=== PATIENT | female | born 1990 ===

== ENCOUNTER 2020-06-27 23:58 | Emergency (ER) | payer OTHER ==
[2020-06-28] MEDS ORDERED: Sodium Chloride 0.9% 10 ML Syringe FLUSH PRN (01:00)
[2020-06-28] MEDS ORDERED: Sodium Chloride 0.9% 2.5 ML Syringe FLUSH PRN (01:00)
[2020-06-28] MEDS ORDERED: Lactated Ringers 1,000 ML IV ONE (01:01)
[2020-06-28] MEDS ORDERED: Metoclopramide 10 MG/2 ML SDV IVPUSH ONE ×2 (01:01→01:41)
--- NOTE | 2020-06-28 01:04 | EDM.PDOC ---
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 Cuello through [facility] who is presenting with nausea vomiting. Patient reports that she has had trouble with nausea and vomiting for the last 2 weeks. She did talk to her OBs and she has an appointment with them the day after tomorrow. They had recommended B6 and Unisom but she had wanted to try things naturally and so has not taken anything. No abdominal pain no vaginal bleeding no diarrhea no back pain or flank pain no dysuria or hematuria patient reports intolerance to solids and liquids all day today. No alleviating factors radiation or other associated symptoms. epigastric Pain Score (Numeric/FACES): 7 - Related Data Allergies Allergy/AdvReac Type Severity Reaction Status Date / Time No Known Allergies Allergy Verified 06/28/20 01:00 Home Meds: Home Meds Pnv No.95/Ferrous Fum/Folic AC [ Caplet] 1 tab PO DAILY 06/28/20 [History] ED ROS GENERAL - Review of Systems Review Of Systems: See Below Free Text/Narrative/Comment: General: No fever. Skin: No rash. Eyes: No vision problems. ENT: No sore throat. Neck: No neck stiffness. Respiratory: No shortness of breath. Cardiac: No chest pain. Gastrointestinal: Per HPI Urinary: No dysuria. Musculoskeletal: No myalgias/arthralgias. Neurologic: No headache. ED EXAM, GENERAL - Physical Exam Exam: See Below Free Text/Narrative:: General Appearance: No acute distress, appears comfortable Skin: No rash HEENT: Normocephalic/atraumatic, sclera anicteric, mucous membranes dry Neck: Normal range of motion Chest and Lungs: Bilateral breath sounds, clear to auscultation Cardiovascular: Regular rate and rhythm, no murmur Abdomen: Soft, non-tender Back: Normal Musculoskeletal: No edema or tenderness Neurologic: Awake, alert, no obvious deficits, moving all extremities Psychiatric: Appropriate, cooperative Course - Vital Signs Last Recorded V/S: Last Vital Signs Temp 97.4 F 06/28/20 00:53 Pulse 80 06/28/20 03:15 Resp 16 06/28/20 03:15 BP 111/62 06/28/20 03:15 Pulse Ox 98 06/28/20 03:15 - Orders/Labs/Meds Orders: Active Orders 24 hr Category Date Time Status Dextrose 5%-0.9% NaCl [Dextrose 5%-Normal Saline] 1,000 Med 06/28/20 03:45 Active ml IV ASDIRECTED Sodium Chloride 0.9% [Saline Flush] Med 06/28/20 01:00 Active 10 ml FLUSH ASDIRECTED PRN Sodium Chloride 0.9% [Saline Flush] Med 06/28/20 01:00 Active 2.5 ml FLUSH ASDIRECTED PRN Saline Lock Insert [OM.PC] Stat Oth 06/28/20 01:00 Ordered Medication Orders Dextrose/Sodium Chloride (Dextrose 5%-Normal Saline) 1,000 mls @ 999 mls/hr IV ASDIRECTED LUCIAN Last Admin: 06/28/20 03:45 Dose: 999 mls/hr Documented by: OBI Sodium Chloride (Saline Flush) 10 ml FLUSH ASDIRECTED PRN PRN Reason: Keep Vein Open Last Admin: 06/28/20 01:12 Dose: 10 ml Documented by: XAVIERG Sodium Chloride (Saline Flush) 2.5 ml FLUSH ASDIRECTED PRN PRN Reason: Keep Vein Open Last Admin: 06/28/20 01:12 Dose: 2.5 ml Documented by: OBI Labs: Laboratory Tests 06/28/20 06/28/20 06/28/20 Range/Units 01:03 01:03 01:52 WBC 12.51 H (4.0-11.0) K/uL RBC 4.05 L (4.30-5.90) M/uL Hgb 12.6 (12.0-16.0) g/dL Hct 36.0 (36.0-46.0) % MCV 88.9 (80.0-98.0) fL MCH 31.1 (27.0-32.0) pg MCHC 35.0 (31.0-37.0) g/dL RDW Std Deviation 37.6 (28.0-62.0) fl RDW Coeff of Prince 12 (11.0-15.0) % Plt Count 354 (150-400) K/uL MPV 10.30 (7.40-12.00) fL Neut % (Auto) 74.6 (48.0-80.0) % Lymph % (Auto) 18.5 (16.0-40.0) % [place] % (Auto) 6.6 (0.0-15.0) % Eos % (Auto) 0.2 (0.0-7.0) % Baso % (Auto) 0.1 (0.0-1.5) % Neut # (Auto) 9.3 H (1.4-5.7) K/uL Lymph # (Auto) 2.3 (0.6-2.4) K/uL [place] # (Auto) 0.8 (0.0-0.8) K/uL Eos # (Auto) 0.0 (0.0-0.7) K/uL Baso # (Auto) 0.0 (0.0-0.1) K/uL Sodium 135 L (136-145) mmol/L Potassium 3.5 (3.5-5.1) mmol/L Chloride 99 (98-107) mmol/L Carbon Dioxide 23.2 (21.0-32.0) mmol/L BUN 9 (7.0-18.0) mg/dL Creatinine 0.6 (0.6-1.0) mg/dL Est Cr Clr Drug Dosing 115.47 mL/min Estimated GFR (MDRD) > 60.0 ml/min Glucose 103 (74-106) mg/dL Calcium 9.8 (8.5-10.1) mg/dL Total Bilirubin 0.4 (0.2-1.0) mg/dL AST 15 (15-37) IU/L ALT 25 (14-63) IU/L Alkaline Phosphatase 59 (46-116) U/L Total Protein 8.7 H (6.4-8.2) g/dL Albumin 4.2 (3.4-5.0) g/dL Globulin 4.5 H (2.6-4.0) g/dL Albumin/Globulin Ratio 0.9 (0.9-1.6) Urine Color YELLOW Urine Appearance SLT CLOUDY Urine pH 6.0 (5.0-8.0) Ur Specific [place] >= 1.030 (1.001-1.035) Urine Protein NEGATIVE (NEGATIVE) mg/dL Urine Glucose (UA) NEGATIVE (NEGATIVE) mg/dL Urine Ketones >=80 (NEGATIVE) mg/dL Urine Occult Blood NEGATIVE (NEGATIVE) Urine Nitrite NEGATIVE (NEGATIVE) Urine Bilirubin SMALL H (NEGATIVE) Urine Ictotest NEGATIVE Urine Urobilinogen 0.2 (<2.0) EU/dL Ur Leukocyte Esterase NEGATIVE (NEGATIVE) Urine RBC 0-1 (0-2/HPF) Urine WBC 0-2 (0-5/HPF) Ur Epithelial Cells MODERATE (NONE-FEW) Urine Bacteria RARE (NEGATIVE) Urine Mucus HEAVY (NONE-MOD) Meds: Medications Generic Name Dose Route Start Last Admin Trade Name Freq PRN Reason Stop Dose Admin Dextrose/Sodium Chloride 1,000 mls @ 999 mls/hr 06/28/20 03:45 06/28/20 03:45 Dextrose 5%-Normal Saline IV 999 mls/hr ASDIRECTED LUCIAN Administration Sodium Chloride 10 ml 06/28/20 01:00 06/28/20 01:12 Saline Flush FLUSH 10 ml ASDIRECTED PRN Administration Keep Vein Open Sodium Chloride 2.5 ml 06/28/20 01:00 06/28/20 01:12 Saline Flush FLUSH 2.5 ml ASDIRECTED PRN Administration Keep Vein Open Discontinued Medications Generic Name Dose Route Start Last Admin Trade Name Manuela PRN Reason Stop Dose Admin Lactated Ringer's 1,000 mls @ 999 mls/hr 06/28/20 01:01 06/28/20 01:09 Ringers, Lactated IV 06/28/20 02:01 999 mls/hr .BOLUS ONE Administration Sodium Chloride 154 meq/ 1,038.5 mls @ 999 mls/hr 06/28/20 02:45 Dextrose/Water IV ASDIRECTED LUCIAN Metoclopramide HCl 5 mg 06/28/20 01:01 06/28/20 01:11 Reglan IVPUSH 06/28/20 01:02 5 mg ONETIME ONE Administration Metoclopramide HCl 5 mg 06/28/20 01:41 06/28/20 01:47 Reglan IVPUSH 06/28/20 01:42 5 mg ONETIME ONE Administration Pyridoxine HCl 25 mg 06/28/20 02:00 06/28/20 02:11 Vitamin B6-Pyridoxine PO 06/28/20 02:01 25 mg ONETIME ONE Administration Departure - Departure Time of Disposition: 04:35 Disposition: Home, Self-Care 01 Condition: Good Clinical Impression: Hyperemesis gravidarum - Discharge Information *PRESCRIPTION DRUG MONITORING PROGRAM REVIEWED*: Not Applicable *COPY OF PRESCRIPTION DRUG MONITORING REPORT IN PATIENT JAH: Not Applicable Instructions: Morning Sickness, [id number] Forms: ED Department Discharge Additional Instructions: I encourage you to take the B vitamins and Unisom for your nausea as instructed by your OB. Please be sure to follow-up with them as scheduled on Monday. If your symptoms again become severe and you are unable to tolerate solids or liquids please call your OBs office or return to the emergency department. The following information is given to patients seen in the emergency department who are being discharged to home. This information is to outline your options for follow-up care. We provide all patients seen in our emergency department with a follow-up referral. The need for follow-up, as well as the timing and circumstances, are variable depending upon the specifics of your emergency department visit. If you don't have a primary care physician on staff, we will provide you with a referral. We always advise you to contact your personal physician following an emergency department visit to inform them of the circumstance of the visit and for follow-up with them and/or the need for any referrals to a consulting specialist. The emergency department will also refer you to a specialist when appropriate. This referral assures that you have the opportunity for follow-up care with a specialist. All of these measure are taken in an effort to provide you with optimal care, which includes your follow-up. Under all circumstances we always encourage you to contact your private physician who remains a resource for coordinating your care. When calling for follow-up care, please make the office aware that this follow-up is from your recent emergency room visit. If for any reason you are refused follow-up, please contact the [facility] Emergency Department at and asked to speak to the emergency department charge nurse. Sepsis Event Note (ED) - Evaluation Sepsis Screening Result: No Definite Risk - Focused Exam Vital Signs: Vital Signs Temp Pulse Resp BP Pulse Ox 06/28/20 03:15 80 16 111/62 98 06/28/20 02:15 82 17 108/65 99 06/28/20 00:53 97.4 F 92 18 131/89 100 - My Orders Last 24 Hours: My Active Orders 06/28/20 01:00 Sodium Chloride 0.9% [Saline Flush] 10 ml FLUSH ASDIRECTED PRN Sodium Chloride 0.9% [Saline Flush] 2.5 ml FLUSH ASDIRECTED PRN Saline Lock Insert [OM.PC] Stat 06/28/20 03:45 Dextrose 5%-0.9% NaCl [Dextrose 5%-Normal Saline] 1,000 ml IV ASDIRECTED - Assessment/Plan Last 24 Hours: My Active Orders 06/28/20 01:00 Sodium Chloride 0.9% [Saline Flush] 10 ml FLUSH ASDIRECTED PRN Sodium Chloride 0.9% [Saline Flush] 2.5 ml FLUSH ASDIRECTED PRN Saline Lock Insert [OM.PC] Stat 06/28/20 03:45 Dextrose 5%-0.9% NaCl [Dextrose 5%-Normal Saline] 1,000 ml IV ASDIRECTED Assessment:: 29-year-old female presenting with nausea and vomiting in early . No abdominal pain or tenderness no vaginal bleeding patient has already had a first trimester ultrasound no indication for ultrasound at this point. CBC CMP urinalysis to look for ketones or signs of UTI. Lactated Ringer's and Reglan ordered as well and will reassess. Pt's labs are good. Minimal hyponatremia, Ketones in the urine. Pt was given D5 NS with good sx improvement. Pt's sx have resolved and she tolerates PO well. Patient will f/u with her OB as scheduled tomorrow. Return precautions discussed and understood. Pt encouraged to take the unisom and Vitamin B as instructed by her OB.
[2020-06-28 01:35] LABS: BLOOD UREA NITROGEN,BUN 9 mg/dL (7.0-18.0); CARBON DIOXIDE,CO2 23.2 mmol/L (21.0-32.0); CHLORIDE,CL 99 mmol/L (98-107); GLUCOSE RANDOM 103 mg/dL (74-106); POTASSIUM,K 3.5 mmol/L (3.5-5.1); SODIUM,NA 135 mmol/L (136-145)
[2020-06-28] MEDS ORDERED: Vitamin B6-pyridOXINE 50 MG Tab PO ONE (02:00)
[2020-06-28] MEDS ORDERED: Sodium Chloride 23.4% 154 MEQ in Dextrose 10% in Water 1,000 ML IV SCH ×2 (02:45)
[2020-06-28] MEDS ORDERED: Dextrose 5%-0.9% NaCl 1,000 ML IV SCH (03:45)
== END 2020-06-28 04:50 | disposition home or self-care (01) ==
LOC: MW.ED 23:58
DX: O21.0 Mild hyperemesis gravidarum (principal); Z3A.08 8 weeks gestation of pregnancy
CPT/HCPCS: 36415; 80053; 81001; 85025; 96361; 96374; 96376; 99284; A9270; J2765; J7042; J7120; 99283

== ENCOUNTER 2020-07-20 12:07 | Emergency (ER) | payer OTHER ==
[2020-07-20] MEDS ORDERED: Ondansetron 4 MG/2 ML SDV IVPUSH ONE (12:10)
[2020-07-20] MEDS ORDERED: Sodium Chloride 0.9% 2.5 ML Syringe FLUSH PRN (12:10)
[2020-07-20] MEDS ORDERED: Sodium Chloride 0.9% 10 ML Syringe FLUSH PRN (12:10)
[2020-07-20] MEDS ORDERED: Sodium Chloride 0.9% 1,000 ML IV ONE (12:10)
--- NOTE | 2020-07-20 12:10 | EDM.PDOC ---
ED HPI GENERAL MEDICAL PROBLEM - General Stated Complaint: NAUSEA 12 WEEKS Time Seen by Provider: 07/20/20 12:08 Source of Information: Reports: Patient History Limitations: Reports: No Limitations - History of Present Illness INITIAL COMMENTS - FREE TEXT/NARRATIVE: 29-year-old female approximately 12 weeks presents for nausea and vomiting. Patient has been treated in the past for hyperemesis gravidarum. She notes that she has been taking Unisom, folic acid, vitamin B6 which has been helping a lot with her symptoms. Last night she developed retching, and inability to tolerate p.o. She has been able to take sips of water this morning without retching or vomiting, but still feels very nauseated and has a lack of appetite. She also notes interval development of a nonproductive cough, although she denies fevers or shortness of breath. 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 ED EXAM, GENERAL - Physical Exam Exam: See Below Exam Limited By: No Limitations General Appearance: Alert, WD/WN, No Apparent Distress Throat/Mouth: Normal Voice, No Airway Compromise Head: Atraumatic, Normocephalic Neck: Normal Inspection Respiratory/Chest: No Respiratory Distress, Lungs Clear, Normal Breath Sounds, No Accessory Muscle Use Cardiovascular: Normal Peripheral Pulses, Regular Rate, Rhythm GI/Abdominal: Soft, Non-Tender Extremities: Normal Inspection Neurological: Alert Psychiatric: Normal Affect, Normal Mood Skin Exam: Warm, Dry, Intact, Normal Color Course - Vital Signs Last Recorded V/S: Last Vital Signs Temp 98.4 F 07/20/20 12:19 Pulse 100 07/20/20 12:19 Resp 16 07/20/20 12:19 BP 115/66 07/20/20 12:19 Pulse Ox 97 07/20/20 12:19 - Orders/Labs/Meds Orders: Active Orders 24 hr Category Date Time Status Assess Heart Rate [ Heart Rate] [RC] Click Care 07/20/20 12:34 Active to Edit OB 1st Tri Sgl 1st Gest [US] Stat Exams 07/20/20 15:01 Taken CORONAVIRUS COVID-19 PCR PHL Stat Lab 07/20/20 12:59 Received Sodium Chloride 0.9% [Saline Flush] Med 07/20/20 12:10 Active 10 ml FLUSH ASDIRECTED PRN Sodium Chloride 0.9% [Saline Flush] Med 07/20/20 12:10 Active 2.5 ml FLUSH ASDIRECTED PRN Saline Lock Insert [OM.PC] Stat Oth 07/20/20 12:10 Ordered Medication Orders Sodium Chloride (Saline Flush) 2.5 ml FLUSH ASDIRECTED PRN PRN Reason: Keep Vein Open Sodium Chloride (Saline Flush) 10 ml FLUSH ASDIRECTED PRN PRN Reason: Keep Vein Open Labs: Laboratory Tests 07/20/20 07/20/20 07/20/20 Range/Units 12:55 12:55 12:55 WBC 10.38 (4.0-11.0) K/uL RBC 3.82 L (4.30-5.90) M/uL Hgb 11.6 L (12.0-16.0) g/dL Hct 34.1 L (36.0-46.0) % MCV 89.3 (80.0-98.0) fL MCH 30.4 (27.0-32.0) pg MCHC 34.0 (31.0-37.0) g/dL RDW Std Deviation 39.9 (28.0-62.0) fl RDW Coeff of Prince 12 (11.0-15.0) % Plt Count 332 (150-400) K/uL MPV 10.50 (7.40-12.00) fL Neut % (Auto) 69.2 (48.0-80.0) % Lymph % (Auto) 24.3 (16.0-40.0) % [place] % (Auto) 5.7 (0.0-15.0) % Eos % (Auto) 0.7 (0.0-7.0) % Baso % (Auto) 0.1 (0.0-1.5) % Neut # (Auto) 7.2 H (1.4-5.7) K/uL Lymph # (Auto) 2.5 H (0.6-2.4) K/uL [place] # (Auto) 0.6 (0.0-0.8) K/uL Eos # (Auto) 0.1 (0.0-0.7) K/uL Baso # (Auto) 0.0 (0.0-0.1) K/uL Nucleated RBC % 0.0 /100WBC Nucleated RBCs # 0 K/uL Lactate 0.9 (0.20-2.00) mmol/L Sodium 134 L (136-145) mmol/L Potassium 3.7 (3.5-5.1) mmol/L Chloride 100 (98-107) mmol/L Carbon Dioxide 21.3 (21.0-32.0) mmol/L BUN 6 L (7.0-18.0) mg/dL Creatinine 0.5 L (0.6-1.0) mg/dL Est Cr Clr Drug Dosing 138.57 mL/min Estimated GFR (MDRD) > 60.0 ml/min Glucose 81 (74-106) mg/dL Calcium 9.3 (8.5-10.1) mg/dL Magnesium 2.1 (1.8-2.4) mg/dL Total Bilirubin 0.2 (0.2-1.0) mg/dL AST 21 (15-37) IU/L ALT 30 (14-63) IU/L Alkaline Phosphatase 53 (46-116) U/L Total Protein 7.9 (6.4-8.2) g/dL Albumin 3.6 (3.4-5.0) g/dL Globulin 4.3 H (2.6-4.0) g/dL Albumin/Globulin Ratio 0.8 L (0.9-1.6) Lipase 82 (73-393) U/L HCG, Quant 906189.0 mIU/mL Urine Color Urine Appearance Urine pH (5.0-8.0) Ur Specific [place] (1.001-1.035) Urine Protein (NEGATIVE) mg/dL Urine Glucose (UA) (NEGATIVE) mg/dL Urine Ketones (NEGATIVE) mg/dL Urine Occult Blood (NEGATIVE) Urine Nitrite (NEGATIVE) Urine Bilirubin (NEGATIVE) Urine Urobilinogen (<2.0) EU/dL Ur Leukocyte Esterase (NEGATIVE) Urine RBC (0-2/HPF) Urine WBC (0-5/HPF) Ur Epithelial Cells (NONE-FEW) Urine Bacteria (NEGATIVE) Ketones (NEG) SARS CoV-2 RNA Rapid MARINA (NEGATIVE) 07/20/20 07/20/20 07/20/20 Range/Units 12:55 12:59 14:28 WBC (4.0-11.0) K/uL RBC (4.30-5.90) M/uL Hgb (12.0-16.0) g/dL Hct (36.0-46.0) % MCV (80.0-98.0) fL MCH (27.0-32.0) pg MCHC (31.0-37.0) g/dL RDW Std Deviation (28.0-62.0) fl RDW Coeff of [place] (11.0-15.0) % Plt Count (150-400) K/uL MPV (7.40-12.00) fL Neut % (Auto) (48.0-80.0) % Lymph % (Auto) (16.0-40.0) % [place] % (Auto) (0.0-15.0) % Eos % (Auto) (0.0-7.0) % Baso % (Auto) (0.0-1.5) % Neut # (Auto) (1.4-5.7) K/uL Lymph # (Auto) (0.6-2.4) K/uL [place] # (Auto) (0.0-0.8) K/uL Eos # (Auto) (0.0-0.7) K/uL Baso # (Auto) (0.0-0.1) K/uL Nucleated RBC % /100WBC Nucleated RBCs # K/uL Lactate (0.20-2.00) mmol/L Sodium (136-145) mmol/L Potassium (3.5-5.1) mmol/L Chloride (98-107) mmol/L Carbon Dioxide (21.0-32.0) mmol/L BUN (7.0-18.0) mg/dL Creatinine (0.6-1.0) mg/dL Est Cr Clr Drug Dosing mL/min Estimated GFR (MDRD) ml/min Glucose (74-106) mg/dL Calcium (8.5-10.1) mg/dL Magnesium (1.8-2.4) mg/dL Total Bilirubin (0.2-1.0) mg/dL AST (15-37) IU/L ALT (14-63) IU/L Alkaline Phosphatase (46-116) U/L Total Protein (6.4-8.2) g/dL Albumin (3.4-5.0) g/dL Globulin (2.6-4.0) g/dL Albumin/Globulin Ratio (0.9-1.6) Lipase (73-393) U/L HCG, Quant mIU/mL Urine Color YELLOW Urine Appearance CLEAR Urine pH 5.5 (5.0-8.0) Ur Specific [place] >= 1.030 (1.001-1.035) Urine Protein NEGATIVE (NEGATIVE) mg/dL Urine Glucose (UA) NEGATIVE (NEGATIVE) mg/dL Urine Ketones 40 H (NEGATIVE) mg/dL Urine Occult Blood NEGATIVE (NEGATIVE) Urine Nitrite NEGATIVE (NEGATIVE) Urine Bilirubin NEGATIVE (NEGATIVE) Urine Urobilinogen 0.2 (<2.0) EU/dL Ur Leukocyte Esterase TRACE H (NEGATIVE) Urine RBC 0-1 (0-2/HPF) Urine WBC 1-2 (0-5/HPF) Ur Epithelial Cells MODERATE (NONE-FEW) Urine Bacteria RARE (NEGATIVE) Ketones NEGATIVE (NEG) SARS CoV-2 RNA Rapid MARINA NEGATIVE (NEGATIVE) Meds: Medications Generic Name Dose Route Start Last Admin Trade Name Freq PRN Reason Stop Dose Admin Sodium Chloride 2.5 ml 07/20/20 12:10 Saline Flush FLUSH ASDIRECTED PRN Keep Vein Open Sodium Chloride 10 ml 07/20/20 12:10 Saline Flush FLUSH ASDIRECTED PRN Keep Vein Open Discontinued Medications Generic Name Dose Route Start Last Admin Trade Name Freq PRN Reason Stop Dose Admin Diphenhydramine HCl 25 mg 07/20/20 12:11 07/20/20 13:05 Benadryl IVPUSH 11/02/20 12:12 Not Given ONETIME ONE Sodium Chloride 1,000 mls @ 999 mls/hr 07/20/20 12:10 07/20/20 12:57 Normal Saline IV 07/20/20 13:10 999 mls/hr .Bolus ONE Administration Ondansetron HCl 4 mg 07/20/20 12:10 07/20/20 13:06 Zofran IVPUSH 07/20/20 12:11 Not Given ONETIME ONE Pyridoxine HCl 50 mg 07/20/20 12:15 Vitamin B6-Pyridoxine PO CONTINUOUS LUCIAN - Re-Assessments/Exams Free Text/Narrative Re-Assessment/Exam: 07/20/20 12:32 We will get labs to ensure no electrolyte abnormality, clinically significant de hydration. Will treat symptomatically with IV fluid bolus, Zofran, Benadryl, vitamin B6. We will get a Covid swab. 07/20/20 13:46 White blood cell count 10, hemoglobin 11, lactate 0.9 07/20/20 13:54 Serum ketones negative 07/20/20 14:40 CMP is unremarkable, normal renal function, mild hyponatremia to 134. Beta hCG is [id number]. We will follow up UA and disposition accordingly. 07/20/20 15:48 UA unremarkable. FHR were not able to be detected in ER; formal US ordered 07/20/20 16:43 Normal heart rate of 172 on formal ultrasound. 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 Departure - Departure Time of Disposition: 16:44 Disposition: Home, Self-Care 01 Condition: Good Clinical Impression: Vomiting - Discharge Information Instructions: Hyperemesis Gravidarum Referrals: PCP,None [Primary Care Provider] - Additional Instructions: The following information is given to patients seen in the emergency department who are being discharged to home. This information is to outline your options for follow-up care. We provide all patients seen in our emergency department with a follow-up referral. The need for follow-up, as well as the timing and circumstances, are variable depending upon the specifics of your emergency department visit. If you don't have a primary care physician on staff, we will provide you with a referral. We always advise you to contact your personal physician following an emergency department visit to inform them of the circumstance of the visit and for follow-up with them and/or the need for any referrals to a consulting specialist. The emergency department will also refer you to a specialist when appropriate. This referral assures that you have the opportunity for follow-up care with a specialist. All of these measure are taken in an effort to provide you with optimal care, which includes your follow-up. Under all circumstances we always encourage you to contact your private physician who remains a resource for coordinating your care. When calling for follow-up care, please make the office aware that this follow-up is from your recent emergency room visit. If for any reason you are refused follow-up, please contact the [facility] Emergency Department at and asked to speak to the emergency department charge nurse. Please follow up with your primary care physician. If you do not have a primary care physician, see below: [facility] [address] [place] [id number] My [facility] [address] [place] [id number] Sepsis Event Note (ED) - Focused Exam Vital Signs: Vital Signs Temp Pulse Resp BP Pulse Ox 07/20/20 12:19 98.4 F 100 16 115/66 97 - My Orders Last 24 Hours: My Active Orders 07/20/20 12:10 Sodium Chloride 0.9% [Saline Flush] 10 ml FLUSH ASDIRECTED PRN Sodium Chloride 0.9% [Saline Flush] 2.5 ml FLUSH ASDIRECTED PRN Saline Lock Insert [OM.PC] Stat 07/20/20 12:34 Assess Heart Rate [ Heart Rate] [RC] Click to Edit 07/20/20 12:59 CORONAVIRUS COVID-19 PCR PHL Stat - Assessment/Plan Last 24 Hours: My Active Orders 07/20/20 12:10 Sodium Chloride 0.9% [Saline Flush] 10 ml FLUSH ASDIRECTED PRN Sodium Chloride 0.9% [Saline Flush] 2.5 ml FLUSH ASDIRECTED PRN Saline Lock Insert [OM.PC] Stat 07/20/20 12:34 Assess Heart Rate [ Heart Rate] [RC] Click to Edit 07/20/20 12:59 CORONAVIRUS COVID-19 PCR PHL Stat
[2020-07-20] MEDS ORDERED: diphenhydrAMINE 50 MG/ML SDV IVPUSH ONE (12:11)
[2020-07-20] MEDS ORDERED: Vitamin B6-pyridOXINE 50 MG Tab PO SCH (12:15)
[2020-07-20 14:36] LABS: BLOOD UREA NITROGEN,BUN 6 mg/dL (7.0-18.0); CARBON DIOXIDE,CO2 21.3 mmol/L (21.0-32.0); CHLORIDE,CL 100 mmol/L (98-107); GLUCOSE RANDOM 81 mg/dL (74-106); LIPASE 82 U/L (73-393); POTASSIUM,K 3.7 mmol/L (3.5-5.1); SODIUM,NA 134 mmol/L (136-145)
--- NOTE | 2020-07-20 17:00 | US ---
INDICATION: Nausea and vomiting confirm heart tones TECHNIQUE: Ultrasound OB pelvis transabdominal. Real-time chandler-scale imaging of the pelvis was performed. COMPARISON: None FINDINGS: Sonographic imaging demonstrates a single living intrauterine gestation. The embryo demonstrates a regular cardiac rate measuring 174 beats per minute. The embryo`s crown rump length measurement of 4.9 cm corresponds to a gestational age of 11 weeks 5 days with a sonographic due date of February 03, 2021. There is a normal appearing yolk sac. There are no gross abnormalities noted within the embryo at this early state of development. The placenta has not yet developed. There is no sign of perigestational hemorrhage. The ovaries are of normal size. There are no suspicious fluid collections noted in the cul-de-sac. IMPRESSION: Single live intrauterine gestation measuring 11 weeks 5 days by ultrasound measurements with a heart rate of 174 beats per minute. Dictated by Nawaf Cagle MD @ Jul 20 2020 4:57PM Signed by Dr. Nawaf Cagle @ Jul 20 2020 4:59PM
== END 2020-07-20 16:50 | disposition home or self-care (01) ==
LOC: MW.ED 12:07
DX: O21.9 Vomiting of pregnancy, unspecified (principal); O99.281 Endocrine, nutritional and metabolic diseases complicating pregnancy, first trimester; E86.0 Dehydration; Z20.828 Contact with and (suspected) exposure to other viral communicable diseases; Z3A.12 12 weeks gestation of pregnancy
CPT/HCPCS: 36415; 76801; 80053; 81001; 82009; 83605; 83690; 83735; 84702; 85025; 87635; 99284; J7030; 99283; U0002

== ENCOUNTER 2021-02-05 23:23 | Inpatient (IN) | payer OTHER ==
[2021-02-05] MEDS ORDERED: Water For Irrigation,Sterile 1,000 ML Container IRR PRN (23:37)
[2021-02-05] MEDS ORDERED: Butorphanol 1 MG/ML SDV IVPUSH PRN (23:37)
[2021-02-05] MEDS ORDERED: Misoprostol 25 MCG (1/4 of 100 MCG) Tab VAG PRN (23:37)
[2021-02-05] MEDS ORDERED: Misoprostol 200 MCG Tab PO PRN (23:37)
[2021-02-05] MEDS ORDERED: Sodium Chloride 0.9% 10 ML Syringe FLUSH PRN (23:37)
[2021-02-05] MEDS ORDERED: Methylergonovine 0.2 MG/1 ML Amp IM PRN (23:37)
[2021-02-05] MEDS ORDERED: Carboprost Tromethamine 250 MCG/1 ML Amp IM PRN (23:37)
[2021-02-05] MEDS ORDERED: Terbutaline 1 MG/ML SDV SUBCUT PRN (23:37)
[2021-02-05] MEDS ORDERED: Ondansetron 4 MG/2 ML SDV IVPUSH PRN (23:37)
[2021-02-05] MEDS ORDERED: Lidocaine 1% 50 ML MDV INJECT PRN (23:37)
[2021-02-05] MEDS ORDERED: Sodium Chloride 0.9% 2.5 ML Syringe FLUSH PRN (23:37)
[2021-02-05] MEDS ORDERED: Tranexamic Acid 1,000 MG in Sodium Chloride 0.9% 100 ML IV PRN (23:37)
[2021-02-05] MEDS ORDERED: Lactated Ringers 1,000 ML IV SCH (23:45)
[2021-02-05] MEDS ORDERED: Oxytocin/0.9 % Sodium Chloride 30 UNIT/500 ML BAG IV SCH (23:45)
[2021-02-06] MEDS: Misoprostol 25 MCG (1/4 of 100 MCG) Tab VAG PRN ×3 (04:52→13:30)
[2021-02-06 10:28] LABS: BLOOD UREA NITROGEN,BUN 6 mg/dL (7.0-18.0); CARBON DIOXIDE,CO2 21.6 mmol/L (21.0-32.0); CHLORIDE,CL 102 mmol/L (98-107); GLUCOSE RANDOM 90 mg/dL (74-106); POTASSIUM,K 3.9 mmol/L (3.5-5.1); SODIUM,NA 133 mmol/L (136-145)
[2021-02-06] MEDS ORDERED: fentaNYL 100 MCG/2 ML SDV ONE (19:25)
[2021-02-06] MEDS ORDERED: Ropivacaine HCl/PF 200 ML ONE (19:26)
--- NOTE | 2021-02-06 20:07 | PCM.PREANE ---
Preanesthetic Assessment - Procedure Proposed Procedure: LEROY for active labor - Anesthesia/Transfusion/Family Hx Anesthesia History: Prior Anesthesia Without Reaction (T & A, nasal surgery, both without anesthesia complications) Family History of Anesthesia Reaction: No Transfusion History: No Prior Transfusion(s) - Review of Systems General: No Symptoms Pulmonary: No Symptoms Cardiovascular: No Symptoms Gastrointestinal: No Symptoms Neurological: No Symptoms Other: Reports: None - Physical Assessment NPO Status Date: 02/06/21 (NPO for food, clear liquids okay) NPO Status Time: 12:00 Height: 1.6 m Weight: 79.379 kg ASA Class: 2 Mental Status: Alert & Oriented x3 Airway Class: Mallampati = 2 Dentition: Reports: Normal Dentition Thyro-Mental Finger Breadths: 4 Mouth Opening Finger Breadths: 3 ROM/Head Extension: Full Lungs: Normal Respiratory Effort Cardiovascular: Regular Rate, Regular Rhythm - Lab Values: Laboratory Last Values WBC 8.71 K/uL (4.0-11.0) 02/06/21 00:26 RBC 3.78 M/uL (4.30-5.90) L 02/06/21 00:26 Hgb 11.8 g/dL (12.0-16.0) L 02/06/21 00:26 Hct 35.0 % (36.0-46.0) L 02/06/21 00:26 MCV 92.6 fL (80.0-98.0) 02/06/21 00:26 MCH 31.2 pg (27.0-32.0) 02/06/21 00:26 MCHC 33.7 g/dL (31.0-37.0) 02/06/21 00:26 RDW Std Deviation 45.0 fl (28.0-62.0) 02/06/21 00:26 RDW Coeff of Prince 14 % (11.0-15.0) 02/06/21 00:26 Plt Count 183 K/uL (150-400) 02/06/21 00:26 MPV 12.30 fL (7.40-12.00) H 02/06/21 00:26 Sodium 133 mmol/L (136-145) L 02/06/21 09:54 Potassium 3.9 mmol/L (3.5-5.1) 02/06/21 09:54 Chloride 102 mmol/L (98-107) 02/06/21 09:54 Carbon Dioxide 21.6 mmol/L (21.0-32.0) 02/06/21 09:54 BUN 6 mg/dL (7.0-18.0) L 02/06/21 09:54 Creatinine 0.6 mg/dL (0.6-1.0) 02/06/21 09:54 Est Cr Clr Drug Dosing 114.44 mL/min 02/06/21 09:54 Estimated GFR (MDRD) > 60.0 ml/min 02/06/21 09:54 Glucose 90 mg/dL (74-106) 02/06/21 09:54 Uric Acid 3.9 mg/dL (2.6-7.2) 02/06/21 09:54 Calcium 8.4 mg/dL (8.5-10.1) L 02/06/21 09:54 Total Bilirubin 0.3 mg/dL (0.2-1.0) 02/06/21 09:54 AST 23 IU/L (15-37) 02/06/21 09:54 ALT 22 IU/L (14-63) 02/06/21 09:54 Alkaline Phosphatase 280 U/L (46-116) H 02/06/21 09:54 Total Protein 7.0 g/dL (6.4-8.2) 02/06/21 09:54 Albumin 2.7 g/dL (3.4-5.0) L 02/06/21 09:54 Globulin 4.3 g/dL (2.6-4.0) H 02/06/21 09:54 Albumin/Globulin Ratio 0.6 (0.9-1.6) L 02/06/21 09:54 Ur Random Creatinine 58.9 mg/dL 02/06/21 10:00 U Random Total Protein 19.0 mg/dL (<11.9) H 02/06/21 10:00 Protein/Creatinin Ratio 0.3 02/06/21 10:00 Blood Type A POSITIVE 02/06/21 00:26 Antibody Screen NEGATIVE 02/06/21 00:26 - Allergies Allergies/Adverse Reactions: Allergies Allergy/AdvReac Type Severity Reaction Status Date / Time No Known Allergies Allergy Verified 07/20/20 12:22 - Acknowledgements Anesthesia Type Planned: Epidural Pt an Appropriate Candidate for the Planned Anesthesia: Yes Alternatives and Risks of Anesthesia Discussed w Pt/Guardian: Yes Pt/Guardian Understands and Agrees with Anesthesia Plan: Yes Additional Comments: H&P with patient cooperation. Discussed risks, benefits, alternatives, procedure, and FEED MANAGER with patient. All questions answered and concerns addressed. Consent signed with RN witness. PreAnesthesia Questionnaire HEENT History: Reports: None MACHINE CAPTAIN History: Reports: , Spontaneous - Infectious Disease History Infectious Disease History: Reports: Chicken Pox - Past Surgical History HEENT Surgical History: Reports: Naso-Sinus Surgery - SUBSTANCE USE Tobacco Use Status *Q: Never Tobacco User Second Hand Smoke Exposure: No Recreational Drug Use History: No - HOME MEDS Home Medications: Home Meds Pnv No.95/Ferrous Fum/Folic AC [ Caplet] 1 tab PO DAILY 06/28/20 [History] Folic Acid 1 tab PO DAILY 07/20/20 [History] Vitamin B6-pyridOXINE 1 tab PO DAILY 07/20/20 [History] - CURRENT (IN HOUSE) MEDS Current Meds: Current Medications Butorphanol Tartrate (Butorphanol 1 Mg/Ml Sdv) 1 mg IVPUSH Q1H PRN PRN Reason: Pain (severe 7-10) Carboprost Tromethamine (Carboprost Tromethamine 250 Mcg/1 Ml Amp) 250 mcg IM ASDIRECTED PRN PRN Reason: Post Hemorrhage Oxytocin/Sodium Chloride (Oxytocin 30 Unit/500 Ml-Ns) 30 unit in 500 mls @ 999 mls/hr IV TITRATE LUCIAN Tranexamic Acid 1,000 mg/ (Sodium Chloride) 110 mls @ 660 mls/hr IV ONETIME PRN PRN Reason: Bleeding Oxytocin/Sodium Chloride (Oxytocin 30 Unit/500 Ml-Ns) 30 unit in 500 mls @ 2 mls/hr IV TITRATE LUCIAN; Protocol Lactated Ringer's (Ringers, Lactated) 1,000 mls @ 150 mls/hr IV ASDIRECTED LUCIAN Last Infusion: 02/06/21 01:18 Dose: 0 mls/hr Documented by: Lidocaine HCl (Lidocaine 1% 50 Ml Mdv) 50 ml INJECT ONETIME PRN PRN Reason: Laceration repair Methylergonovine Maleate (Methylergonovine 0.2 Mg/1 Ml Amp) 0.2 mg IM ASDIRECTED PRN PRN Reason: Post Hemorrhage Misoprostol (Misoprostol 200 Mcg Tab) 200 mcg PO ONETIME PRN PRN Reason: Post Hemorrhage Misoprostol (Misoprostol 25 Mcg (1/4 Of 100 Mcg) Tab) 25 mcg VAG ONETIME PRN PRN Reason: Cervical Ripening Last Admin: 02/06/21 00:42 Dose: 25 mcg Documented by: Misoprostol (Misoprostol 25 Mcg (1/4 Of 100 Mcg) Tab) 25 mcg VAG Q4H PRN PRN Reason: Cervical Ripening Last Admin: 02/06/21 13:30 Dose: 25 mcg Documented by: Ondansetron HCl (Ondansetron 4 Mg/2 Ml Sdv) 4 mg IVPUSH Q4H PRN PRN Reason: Nausea/Vomiting Sodium Chloride (Sodium Chloride 0.9% 10 Ml Syringe) 10 ml FLUSH ASDIRECTED PRN PRN Reason: Keep Vein Open Sodium Chloride (Sodium Chloride 0.9% 2.5 Ml Syringe) 2.5 ml FLUSH ASDIRECTED PRN PRN Reason: Keep Vein Open Sterile Water (Water For Irrigation,Sterile 1,000 Ml Container) 1,000 ml IRR ASDIRECTED PRN PRN Reason: delivery Terbutaline Sulfate (Terbutaline 1 Mg/Ml Sdv) 0.25 mg SUBCUT ASDIRECTED PRN PRN Reason: Tacysystole Discontinued Medications Fentanyl (Fentanyl 100 Mcg/2 Ml Sdv) Confirm Administered Dose 400 mcg .ROUTE .STK-MED ONE Stop: 02/06/21 19:26 Ropivacaine (Naropin 0.2%) Confirm Administered Dose 200 mls @ as directed .ROUTE .STK-MED ONE Stop: 02/06/21 19:27
--- NOTE | 2021-02-06 20:12 | PCM.SN.2 ---
- Free Text/Narrative Note: LEROY for active labor Anesthesia time [id number] 1927- To LDR 2, H&P with patient cooperation. Labs and chart reviewed. Discussed epidural risks, benefits, alternatives, procedure, and ASSOCIATE PROPERTY MANAGER. All questions answered and concerns addressed. 1929- Consent signed with RN witness. 1930- Sitting position, ASA monitors on, VSS. Time-out. 1931- Sterile procedure employed (gloves, hat), chlorhexidine prep., sterile plastic drape. 1933- Localized with lido 1% at L3-4 1936- 1st attempt successful at L3-4. VAISHNAVI with saline at 6.5cm, catheter threaded without resistance to 11cm. No paresthesias. 1938- Aspiration produced bubbled despite ease of catheter placement. Cap replaced (maintaining sterility). Again, bubbles to aspiration. Upon tentative flush with with test dose, fine spray noted out of hole in proximal end of catheter. Sterile scissors used to cut below level of hole, and sterile cap replaced. No bubbles noted to aspiration. 1942- Negative to aspiration for both CSF and heme, test dose negative. 1947- Bolus dose (6 ml Ropivicaine 0.2% with 2 mcg/ml fentanyl) and continuous infusion started (6 ml/hr ropivicaine 0.2% with 2 mcg/ml fentanyl, 4ml ASSOCIATE PROPERTY MANAGER option every 10 min, hourly lockout 34ml). Education provided on ASSOCIATE PROPERTY MANAGER, verbalized understanding. 2008- Adequate pain control, T0 level, VSS.
[2021-02-06] MEDS: Oxytocin/0.9 % Sodium Chloride 30 UNIT/500 ML BAG IV SCH ×2 (20:19→20:39)
[2021-02-06] MEDS ORDERED: Bisacodyl 10 MG Supp RECTAL PRN (22:23)
[2021-02-06] MEDS ORDERED: Acetaminophen 500 MG Tab PO PRN (22:23)
[2021-02-06] MEDS ORDERED: Benzocaine/Menthol 20%-0.5% Spray 78 GM Cannister TOP PRN (22:23)
[2021-02-06] MEDS ORDERED: Docusate Sodium 100 MG Cap PO PRN (22:23)
[2021-02-06] MEDS ORDERED: Witch Hazel Medicated Pads 40/Jar TOP PRN (22:23)
[2021-02-06] MEDS ORDERED: oxyCODONE 5 MG Tab PO PRN (22:23)
[2021-02-06] MEDS ORDERED: Lanolin 100% Cream 7 GM Tube TOP PRN (22:23)
--- NOTE | 2021-02-06 22:34 | PCM.DEL ---
L & D Note - General Info Date of Service: 02/06/21 Mother's Due Date: 02/06/21 - Delivery Note Labor: Spontaneous Cervical Ripening Method: Misoprostil Delivery Outcome: Livebirth Delivery Method: Spontaneous Vaginal Delivery-Single Presentation: Vertex Nuchal Cord: None Anesthesia Type: Epidural Amniotic Fluid Description: Meconium Stained (thick terminal meconium) Episiotomy Type: None Laceration: 2nd Degree, Labial (left), Sulcus (bilateral) Suture type: Vicryl Suture size: Other (0 second degree & sulcal; 2-0 labial & first degree) Placenta: Intact, Spontaneous Cord: 3 Vessels Estimated Blood Loss: 600 Resuscitation Needed: Yes : Suctioned, Cathether, Stimulated, Warmed, Warmer Used Delivery Comments (Free Text/Narrative):: Live female , weight pending, Apgars pending, cord gases pending - General Info Date of Service: 02/06/21 - Patient Data Weight - Most Recent: 79.379 kg Lab Results Last 24 Hours: Laboratory Results - last 24 hr 02/06/21 02/06/21 02/06/21 Range/Units 00:26 00:26 09:54 WBC 8.71 (4.0-11.0) K/uL RBC 3.78 L (4.30-5.90) M/uL Hgb 11.8 L (12.0-16.0) g/dL Hct 35.0 L (36.0-46.0) % MCV 92.6 (80.0-98.0) fL MCH 31.2 (27.0-32.0) pg MCHC 33.7 (31.0-37.0) g/dL RDW Std Deviation 45.0 (28.0-62.0) fl RDW Coeff of Prince 14 (11.0-15.0) % Plt Count 183 (150-400) K/uL MPV 12.30 H (7.40-12.00) fL Sodium 133 L (136-145) mmol/L Potassium 3.9 (3.5-5.1) mmol/L Chloride 102 (98-107) mmol/L Carbon Dioxide 21.6 (21.0-32.0) mmol/L BUN 6 L (7.0-18.0) mg/dL Creatinine 0.6 (0.6-1.0) mg/dL Est Cr Clr Drug Dosing 114.44 mL/min Estimated GFR (MDRD) > 60.0 ml/min Glucose 90 (74-106) mg/dL Uric Acid 3.9 (2.6-7.2) mg/dL Calcium 8.4 L (8.5-10.1) mg/dL Total Bilirubin 0.3 (0.2-1.0) mg/dL AST 23 (15-37) IU/L ALT 22 (14-63) IU/L Alkaline Phosphatase 280 H (46-116) U/L Total Protein 7.0 (6.4-8.2) g/dL Albumin 2.7 L (3.4-5.0) g/dL Globulin 4.3 H (2.6-4.0) g/dL Albumin/Globulin Ratio 0.6 L (0.9-1.6) Ur Random Creatinine mg/dL U Random Total Protein (<11.9) mg/dL Protein/Creatinin Ratio Blood Type A POSITIVE Antibody Screen NEGATIVE 02/06/21 Range/Units 10:00 WBC (4.0-11.0) K/uL RBC (4.30-5.90) M/uL Hgb (12.0-16.0) g/dL Hct (36.0-46.0) % MCV (80.0-98.0) fL MCH (27.0-32.0) pg MCHC (31.0-37.0) g/dL RDW Std Deviation (28.0-62.0) fl RDW Coeff of Prince (11.0-15.0) % Plt Count (150-400) K/uL MPV (7.40-12.00) fL Sodium (136-145) mmol/L Potassium (3.5-5.1) mmol/L Chloride (98-107) mmol/L Carbon Dioxide (21.0-32.0) mmol/L BUN (7.0-18.0) mg/dL Creatinine (0.6-1.0) mg/dL Est Cr Clr Drug Dosing mL/min Estimated GFR (MDRD) ml/min Glucose (74-106) mg/dL Uric Acid (2.6-7.2) mg/dL Calcium (8.5-10.1) mg/dL Total Bilirubin (0.2-1.0) mg/dL AST (15-37) IU/L ALT (14-63) IU/L Alkaline Phosphatase (46-116) U/L Total Protein (6.4-8.2) g/dL Albumin (3.4-5.0) g/dL Globulin (2.6-4.0) g/dL Albumin/Globulin Ratio (0.9-1.6) Ur Random Creatinine 58.9 mg/dL U Random Total Protein 19.0 H (<11.9) mg/dL Protein/Creatinin Ratio 0.3 Blood Type Antibody Screen Med Orders - Current: Current Medications Acetaminophen (Acetaminophen 500 Mg Tab) 1,000 mg PO Q6H PRN PRN Reason: Pain (mild 1-3) Benzocaine/Menthol (Benzocaine/Menthol 20%-0.5% [place] 78 Gm Cannister) 78 gm TOP ASDIRECTED PRN PRN Reason: Perineal Comfort Measure Bisacodyl (Bisacodyl 10 Mg Supp) 10 mg RECTAL ONETIME PRN PRN Reason: Constipation Butorphanol Tartrate (Butorphanol 1 Mg/Ml Sdv) 1 mg IVPUSH Q1H PRN PRN Reason: Pain (severe 7-10) Carboprost Tromethamine (Carboprost Tromethamine 250 Mcg/1 Ml Amp) 250 mcg IM ASDIRECTED PRN PRN Reason: Post Hemorrhage Docusate Sodium (Docusate Sodium 100 Mg Cap) 100 mg PO Q12H PRN PRN Reason: Constipation Emollient Ointment (Lanolin 100% Cream 7 Gm Tube) 0 gm TOP ASDIRECTED PRN PRN Reason: Sore Nipples Oxytocin/Sodium Chloride (Oxytocin 30 Unit/500 Ml-Ns) 30 unit in 500 mls @ 999 mls/hr IV TITRATE LUCIAN Tranexamic Acid 1,000 mg/ (Sodium Chloride) 110 mls @ 660 mls/hr IV ONETIME PRN PRN Reason: Bleeding Oxytocin/Sodium Chloride (Oxytocin 30 Unit/500 Ml-Ns) 30 unit in 500 mls @ 2 mls/hr IV TITRATE LUCIAN; Protocol Last Titration: 02/06/21 20:59 Dose: 6 munits/min, 6 mls/hr Documented by: Lactated Ringer's (Ringers, Lactated) 1,000 mls @ 150 mls/hr IV ASDIRECTED LUCIAN Last Infusion: 02/06/21 01:18 Dose: 0 mls/hr Documented by: Ibuprofen (Ibuprofen 800 Mg Tab) 800 mg PO Q8H PRN PRN Reason: Pain (mild 1-3) Lidocaine HCl (Lidocaine 1% 50 Ml Mdv) 50 ml INJECT ONETIME PRN PRN Reason: Laceration repair Methylergonovine Maleate (Methylergonovine 0.2 Mg/1 Ml Amp) 0.2 mg IM ASDIRECTED PRN PRN Reason: Post Hemorrhage Misoprostol (Misoprostol 200 Mcg Tab) 200 mcg PO ONETIME PRN PRN Reason: Post Hemorrhage Misoprostol (Misoprostol 25 Mcg (1/4 Of 100 Mcg) Tab) 25 mcg VAG ONETIME PRN PRN Reason: Cervical Ripening Last Admin: 02/06/21 00:42 Dose: 25 mcg Documented by: Misoprostol (Misoprostol 25 Mcg (1/4 Of 100 Mcg) Tab) 25 mcg VAG Q4H PRN PRN Reason: Cervical Ripening Last Admin: 02/06/21 13:30 Dose: 25 mcg Documented by: Ondansetron HCl (Ondansetron 4 Mg/2 Ml Sdv) 4 mg IVPUSH Q4H PRN PRN Reason: Nausea/Vomiting Oxycodone HCl (Oxycodone 5 Mg Tab) 5 mg PO Q2H PRN PRN Reason: Pain (severe 7-10) Sodium Chloride (Sodium Chloride 0.9% 10 Ml Syringe) 10 ml FLUSH ASDIRECTED PRN PRN Reason: Keep Vein Open Sodium Chloride (Sodium Chloride 0.9% 2.5 Ml Syringe) 2.5 ml FLUSH ASDIRECTED PRN PRN Reason: Keep Vein Open Sterile Water (Water For Irrigation,Sterile 1,000 Ml Container) 1,000 ml IRR ASDIRECTED PRN PRN Reason: delivery Terbutaline Sulfate (Terbutaline 1 Mg/Ml Sdv) 0.25 mg SUBCUT ASDIRECTED PRN PRN Reason: Tacysystole Witch Patsy (Witch Patsy Medicated Pads 40/Jar) 1 pad TOP ASDIRECTED PRN PRN Reason: comfort care Discontinued Medications Fentanyl (Fentanyl 100 Mcg/2 Ml Sdv) Confirm Administered Dose 400 mcg .ROUTE .STK-MED ONE Stop: 02/06/21 19:26 Ropivacaine (Naropin 0.2%) Confirm Administered Dose 200 mls @ as directed .ROUTE .STK-MED ONE Stop: 02/06/21 19:27 - Problem List & Annotations (1) Vaginal delivery SNOMED Code(s): 091112779 Code(s): O80 - ENCOUNTER FOR FULL-TERM UNCOMPLICATED DELIVERY Status: Acute Current Visit: Yes - Problem List Review Problem List Initiated/Reviewed/Updated: Yes - My Orders Last 24 Hours: My Active Orders 02/05/21 23:37 Patient Status [ADT] Routine Bedrest Bathroom Privileges [RC] ASDIRECTED Communication Order [RC] ASDIRECTED Communication Order [RC] ASDIRECTED Communication Order [RC] ASDIRECTED Heart Tones [RC] CONTINUOUS Non Stress Test [RC] PER UNIT ROUTINE May Shower [RC] ASDIRECTED Notify Provider [RC] PRN Notify Provider [RC] PRN Notify Provider [RC] PRN Notify Provider [RC] STAT Oxygen Therapy [RC] ASDIRECTED Up ad Arlene [RC] ASDIRECTED Vaginal Exam [RC] PRN Vaginal Exam [RC] PRN Vital Signs [RC] PER UNIT ROUTINE RPR (SYPHILIS SERO) W/ RFLX [REF] Routine Butorphanol [Stadol] 1 mg IVPUSH Q1H PRN Carboprost Tromethamine [Hemabate DS] 250 mcg IM ASDIRECTED PRN Lidocaine 1% [Xylocaine 1%] 50 ml INJECT ONETIME PRN Methylergonovine [Methergine] 0.2 mg IM ASDIRECTED PRN Ondansetron [Zofran] 4 mg IVPUSH Q4H PRN Sodium Chloride 0.9% [Saline Flush] 10 ml FLUSH ASDIRECTED PRN Sodium Chloride 0.9% [Saline Flush] 2.5 ml FLUSH ASDIRECTED PRN Terbutaline [Brethine] 0.25 mg SUBCUT ASDIRECTED PRN Tranexamic Acid [Cyklokapron] 1,000 mg Sodium Chloride 0.9% [Normal Saline] 100 ml IV ONETIME Water For Irrigation,Sterile [Sterile Water for Irrigation] 1,000 ml IRR ASDIRECTED PRN miSOPROStoL [Cytotec] 200 mcg PO ONETIME PRN miSOPROStoL [Cytotec] 25 mcg VAG ONETIME PRN miSOPROStoL [Cytotec] 25 mcg VAG Q4H PRN Scalp Electrode [WOMSER] Per Unit Routine Peripheral IV Insertion Adult [OM.PC] Routine Resuscitation Status Routine 02/05/21 23:45 Lactated Ringers [Ringers, Lactated] 1,000 ml IV ASDIRECTED Oxytocin/0.9 % Sodium Chloride [Oxytocin 30 Unit/500 ML-NS] 30 unit in 500 ml IV TITRATE Oxytocin/0.9 % Sodium Chloride [Oxytocin 30 Unit/500 ML-NS] 30 unit in 500 ml IV TITRATE Medication Administration Instruction [OM.PC] Q3H 02/06/21 Breakfast Regular Diet [DIET] 02/06/21 Lunch Regular Diet [DIET] 02/06/21 22:23 Patient Status [ADT] Routine May Shower [RC] ASDIRECTED Notify Provider Vital Signs [RC] ASDIRECTED Up ad Arlene [RC] ASDIRECTED Vital Signs [RC] PER UNIT ROUTINE BLOOD GAS ARTERIAL UMBILICAL [BG] Urgent BLOOD GAS VENOUS UMBILICAL [BG] Urgent Acetaminophen [Tylenol Extra Strength] 1,000 mg PO Q6H PRN Benzocaine/Menthol [Dermoplast Pain Relief 20%-0.5% [place]] 78 gm TOP ASDIRECTED PRN Docusate Sodium [Colace] 100 mg PO Q12H PRN Ibuprofen [Motrin] 800 mg PO Q8H PRN Lanolin [Lansinoh HPA] See Dose Instructions TOP ASDIRECTED PRN bisacodyL [Dulcolax] 10 mg RECTAL ONETIME PRN oxyCODONE 5 mg PO Q2H PRN witch Patsy [Tucks] 1 pad TOP ASDIRECTED PRN Assess Lochia [WOMSER] Per Unit Routine Assess Uterine Involution [WOMSER] Per Unit Routine Breast Pump [WOMSER] Per Unit Routine Ice Therapy [OM.PC] Per Unit Routine Perineal Care [OM.PC] Per Unit Routine Peripheral IV Discontinue [OM.PC] Routine Sitz Bath [OM.PC] Per Unit Routine 02/06/21 22:24 Cooling Warming Measures [RC] ASDIRECTED 02/07/21 05:11 HEMOGLOBIN/HEMATOCRIT,HH [HEME] Timed - Assessment Assessment:: 30yo s/p at 40w0d - Plan Plan:: Admit to unit for routine care. Rh positive, Rubella immune, GBS negative Induction of labor for polyhydramnios, developed preeclampsia in labor. Infant currently in nursery receiving oxygen and IV fluids, large amount of thick terminal meconium. If infant transferred to higher level of care, will discharge home to accompany .
[2021-02-06] MEDS: Ibuprofen 800 MG Tab PO PRN (22:38)
--- NOTE | 2021-02-06 23:58 | OR ---
SURGEON: Irma Cuello MD DATE OF PROCEDURE: 02/06/2021 PREOPERATIVE DIAGNOSES: 1. A 30-year-old, G2, P 0-0-1-0 at 39 weeks and 6 days' gestation. 2. Induction of labor for polyhydramnios. 3. Group B Streptococcus negative. 4. Preeclampsia developed in labor. 5. Suspected macrosomia. POSTOPERATIVE DIAGNOSES: 1. A 30-year-old G2, P 1-0-1-1 at 40 weeks and 0 days' gestation. 2. Induction of labor for polyhydramnios. 3. Group B Streptococcus negative. 4. Preeclampsia developed in labor. 5. Suspected macrosomia. PROCEDURE: Spontaneous vaginal delivery and repair of perineal lacerations. PRIMARY SURGEON: Irma Cuello MD ANESTHESIA: Epidural. ESTIMATED BLOOD LOSS: 600 mL. FINDINGS: Live female in cephalic presentation. scores 5, 6, and 9 at 1, 5, and 10 minutes respectively. Weight 3650g. Venous pH 7.213 with base excess -10. Thick terminal meconium. Placenta intact with 3-vessel cord. Bilateral sulcal, left labial, large second- degree perineal laceration. INDICATIONS: This is a 30-year-old G2, P 0-0-1-0, who presented at 39 weeks and 6 days' gestation for scheduled induction of labor due to polyhydramnios. She was GBS negative. She received 3 doses of Cytotec for cervical ripening and began andriy. She underwent artificial rupture of membranes at 4 cm dilated and quickly progressed to 6 cm dilated. After that, she quickly progressed to complete cervical dilation and then received an epidural for pain control. During induction process, blood pressures were noted to be elevated and preeclampsia labs were obtained. These were normal with the exception of a protein creatinine ratio that was 0.3, making the diagnosis of preeclampsia. She never developed severe features. DESCRIPTION OF PROCEDURE: After receiving adequate pain control with epidural, the patient began pushing. Over the next 1 hour and 15 minutes, she pushed and delivered a live male . The head was delivered followed quickly by the shoulders and remainder of body. The infant was placed on the maternal abdomen. After approximately 30 seconds, the cord was clamped and cut. The was then taken to the warmer for additional resuscitation due to aspiration of a large amount of thick meconium fluid. Cord blood and cord gases were obtained. The placenta then delivered intact with 3-vessel cord via the De-Schroeder maneuver. The perineum was inspected and bilateral sulcal left labial and a large second- degree perineal laceration noted. Rectal exam was performed to ensure that the external anal sphincter was intact. The bilateral sulcal and second-degree perineal lacerations were repaired to anatomy and hemostasis with 0 Vicryl suture. The left labial and first-degree perineal lacerations were repaired to anatomy and hemostasis with 2-0 Vicryl suture. The fundus was firm below the umbilicus. Bleeding was minimal at the end of the repair. All sponge counts were correct. [id number] / MODL /[id number] MTDD
[2021-02-07] MEDS: Ibuprofen 800 MG Tab PO PRN (08:36)
--- NOTE | 2021-02-07 09:19 | PCM.PNPP ---
- General Info Date of Service: 02/07/21 Subjective Update: Patient states she is feeling well this morning. Tolerating oral intake, ambulating without dizziness, voiding. Denies preeclampsia symptoms. Functional Status: Reports: Pain Controlled, Tolerating Diet, Ambulating, Urinating - Review of Systems General: Reports: No Symptoms HEENT: Reports: No Symptoms Pulmonary: Reports: No Symptoms Cardiovascular: Reports: No Symptoms Gastrointestinal: Reports: No Symptoms Genitourinary: Reports: No Symptoms Musculoskeletal: Reports: No Symptoms Skin: Reports: No Symptoms Neurological: Reports: No Symptoms Psychiatric: Reports: No Symptoms - Patient Data Vital Signs - Most Recent: Last Vital Signs Temp 36.4 C 02/07/21 08:00 Pulse 81 02/07/21 08:00 Resp 18 02/07/21 08:00 BP 123/97 H 02/07/21 08:00 Pulse Ox 98 02/07/21 08:00 Weight - Most Recent: 79.379 kg Lab Results - Last 24 Hours: Laboratory Results - last 24 hr 02/06/21 02/06/21 02/06/21 Range/Units 09:54 10:00 21:42 Hgb (12.0-16.0) g/dL Hct (36.0-46.0) % Cord VBG pH 7.213 L (7.25-7.45) Cord VBG Base Excess -10 (-10--2) Sodium 133 L (136-145) mmol/L Potassium 3.9 (3.5-5.1) mmol/L Chloride 102 (98-107) mmol/L Carbon Dioxide 21.6 (21.0-32.0) mmol/L BUN 6 L (7.0-18.0) mg/dL Creatinine 0.6 (0.6-1.0) mg/dL Est Cr Clr Drug Dosing 114.44 mL/min Estimated GFR (MDRD) > 60.0 ml/min Glucose 90 (74-106) mg/dL Uric Acid 3.9 (2.6-7.2) mg/dL Calcium 8.4 L (8.5-10.1) mg/dL Total Bilirubin 0.3 (0.2-1.0) mg/dL AST 23 (15-37) IU/L ALT 22 (14-63) IU/L Alkaline Phosphatase 280 H (46-116) U/L Total Protein 7.0 (6.4-8.2) g/dL Albumin 2.7 L (3.4-5.0) g/dL Globulin 4.3 H (2.6-4.0) g/dL Albumin/Globulin Ratio 0.6 L (0.9-1.6) Ur Random Creatinine 58.9 mg/dL U Random Total Protein 19.0 H (<11.9) mg/dL Protein/Creatinin Ratio 0.3 02/07/21 Range/Units 06:31 Hgb 11.7 L (12.0-16.0) g/dL Hct 34.8 L (36.0-46.0) % Cord VBG pH (7.25-7.45) Cord VBG Base Excess (-10--2) Sodium (136-145) mmol/L Potassium (3.5-5.1) mmol/L Chloride (98-107) mmol/L Carbon Dioxide (21.0-32.0) mmol/L BUN (7.0-18.0) mg/dL Creatinine (0.6-1.0) mg/dL Est Cr Clr Drug Dosing mL/min Estimated GFR (MDRD) ml/min Glucose (74-106) mg/dL Uric Acid (2.6-7.2) mg/dL Calcium (8.5-10.1) mg/dL Total Bilirubin (0.2-1.0) mg/dL AST (15-37) IU/L ALT (14-63) IU/L Alkaline Phosphatase (46-116) U/L Total Protein (6.4-8.2) g/dL Albumin (3.4-5.0) g/dL Globulin (2.6-4.0) g/dL Albumin/Globulin Ratio (0.9-1.6) Ur Random Creatinine mg/dL U Random Total Protein (<11.9) mg/dL Protein/Creatinin Ratio Med Orders - Current: Current Medications Acetaminophen (Acetaminophen 500 Mg Tab) 1,000 mg PO Q6H PRN PRN Reason: Pain (mild 1-3) Last Admin: 02/07/21 08:35 Dose: 1,000 mg Documented by: Benzocaine/Menthol (Benzocaine/Menthol 20%-0.5% Kaplan 78 Gm Cannister) 78 gm TOP ASDIRECTED PRN PRN Reason: Perineal Comfort Measure Last Admin: 02/06/21 22:38 Dose: 1 canister Documented by: Bisacodyl (Bisacodyl 10 Mg Supp) 10 mg RECTAL ONETIME PRN PRN Reason: Constipation Butorphanol Tartrate (Butorphanol 1 Mg/Ml Sdv) 1 mg IVPUSH Q1H PRN PRN Reason: Pain (severe 7-10) Carboprost Tromethamine (Carboprost Tromethamine 250 Mcg/1 Ml Amp) 250 mcg IM ASDIRECTED PRN PRN Reason: Post Hemorrhage Docusate Sodium (Docusate Sodium 100 Mg Cap) 100 mg PO Q12H PRN PRN Reason: Constipation Last Admin: 02/06/21 22:38 Dose: 100 mg Documented by: Emollient Ointment (Lanolin 100% Cream 7 Gm Tube) 0 gm TOP ASDIRECTED PRN PRN Reason: Sore Nipples Oxytocin/Sodium Chloride (Oxytocin 30 Unit/500 Ml-Ns) 30 unit in 500 mls @ 999 mls/hr IV TITRATE LUCIAN Tranexamic Acid 1,000 mg/ (Sodium Chloride) 110 mls @ 660 mls/hr IV ONETIME PRN PRN Reason: Bleeding Oxytocin/Sodium Chloride (Oxytocin 30 Unit/500 Ml-Ns) 30 unit in 500 mls @ 2 mls/hr IV TITRATE LUCIAN; Protocol Last Titration: 02/06/21 20:59 Dose: 6 munits/min, 6 mls/hr Documented by: Lactated Ringer's (Ringers, Lactated) 1,000 mls @ 150 mls/hr IV ASDIRECTED LUCIAN Last Infusion: 02/06/21 01:18 Dose: 0 mls/hr Documented by: Ibuprofen (Ibuprofen 800 Mg Tab) 800 mg PO Q8H PRN PRN Reason: Pain (mild 1-3) Last Admin: 02/07/21 08:36 Dose: 800 mg Documented by: Lidocaine HCl (Lidocaine 1% 50 Ml Mdv) 50 ml INJECT ONETIME PRN PRN Reason: Laceration repair Methylergonovine Maleate (Methylergonovine 0.2 Mg/1 Ml Amp) 0.2 mg IM ASDIRECTED PRN PRN Reason: Post Hemorrhage Misoprostol (Misoprostol 200 Mcg Tab) 200 mcg PO ONETIME PRN PRN Reason: Post Hemorrhage Misoprostol (Misoprostol 25 Mcg (1/4 Of 100 Mcg) Tab) 25 mcg VAG ONETIME PRN PRN Reason: Cervical Ripening Last Admin: 02/06/21 00:42 Dose: 25 mcg Documented by: Misoprostol (Misoprostol 25 Mcg (1/4 Of 100 Mcg) Tab) 25 mcg VAG Q4H PRN PRN Reason: Cervical Ripening Last Admin: 02/06/21 13:30 Dose: 25 mcg Documented by: Ondansetron HCl (Ondansetron 4 Mg/2 Ml Sdv) 4 mg IVPUSH Q4H PRN PRN Reason: Nausea/Vomiting Oxycodone HCl (Oxycodone 5 Mg Tab) 5 mg PO Q2H PRN PRN Reason: Pain (severe 7-10) Sodium Chloride (Sodium Chloride 0.9% 10 Ml Syringe) 10 ml FLUSH ASDIRECTED PRN PRN Reason: Keep Vein Open Sodium Chloride (Sodium Chloride 0.9% 2.5 Ml Syringe) 2.5 ml FLUSH ASDIRECTED PRN PRN Reason: Keep Vein Open Sterile Water (Water For Irrigation,Sterile 1,000 Ml Container) 1,000 ml IRR ASDIRECTED PRN PRN Reason: delivery Terbutaline Sulfate (Terbutaline 1 Mg/Ml Sdv) 0.25 mg SUBCUT ASDIRECTED PRN PRN Reason: Tacysystole Witch Bunny (Witch Bunny Medicated Pads 40/Jar) 1 pad TOP ASDIRECTED PRN PRN Reason: comfort care Last Admin: 02/06/21 22:38 Dose: 1 can Documented by: Discontinued Medications Fentanyl (Fentanyl 100 Mcg/2 Ml Sdv) Confirm Administered Dose 400 mcg .ROUTE .STK-MED ONE Stop: 02/06/21 19:26 Ropivacaine (Naropin 0.2%) Confirm Administered Dose 200 mls @ as directed .ROUTE .STK-MED ONE Stop: 02/06/21 19:27 - Interaction Disposition, : Not Applicable (infant transferred to [facility]) Interaction: Unable to Hold at this Time Feeding: Other (see below) (planning to start pumping while infant in NICU) Support Person: - Recovery Exam Fundal Tone: Firm Fundal Level: 2 Fingerbreadths Below Umbilicus Fundal Placement: Midline Lochia Amount: Small Lochia Color: Rubra/Red Bladder Status: Voiding Urinary Elimination: Voided - Exam General: Alert, Oriented Neck: Supple Lungs: Normal Respiratory Effort GI/Abdominal Exam: Soft, Non-Tender, No Distention Extremities: Non-Tender, Pedal Edema (1+) Skin: Warm, Dry, Intact Neurological: No New Focal Deficit Psy/Mental Status: Alert, Normal Affect, Normal Mood - Problem List & Annotations (1) Vaginal delivery SNOMED Code(s): 623240619 Code(s): O80 - ENCOUNTER FOR FULL-TERM UNCOMPLICATED DELIVERY Status: Acute Current Visit: Yes - Problem List Review Problem List Initiated/Reviewed/Updated: Yes - My Orders Last 24 Hours: My Active Orders 02/06/21 Lunch Regular Diet [DIET] 02/06/21 22:23 Patient Status [ADT] Routine May Shower [RC] ASDIRECTED Notify Provider Vital Signs [RC] ASDIRECTED Up ad Arlene [RC] ASDIRECTED Vital Signs [RC] PER UNIT ROUTINE Acetaminophen [Tylenol Extra Strength] 1,000 mg PO Q6H PRN Benzocaine/Menthol [Dermoplast Pain Relief 20%-0.5% Kaplan] 78 gm TOP ASDI RECTED PRN Docusate Sodium [Colace] 100 mg PO Q12H PRN Ibuprofen [Motrin] 800 mg PO Q8H PRN Lanolin [Lansinoh HPA] See Dose Instructions TOP ASDIRECTED PRN bisacodyL [Dulcolax] 10 mg RECTAL ONETIME PRN oxyCODONE 5 mg PO Q2H PRN witch Bunny [Tucks] 1 pad TOP ASDIRECTED PRN Assess Lochia [WOMSER] Per Unit Routine Assess Uterine Involution [WOMSER] Per Unit Routine Breast Pump [WOMSER] Per Unit Routine Ice Therapy [OM.PC] Per Unit Routine Perineal Care [OM.PC] Per Unit Routine Peripheral IV Discontinue [OM.PC] Routine Sitz Bath [OM.PC] Per Unit Routine 02/06/21 22:24 Cooling Warming Measures [RC] ASDIRECTED - Assessment Assessment:: 30yo s/p at 40w0d, PPD#1 - Plan Plan:: Rh positive, Rubella immune, GBS negative Induction of labor for polyhydramnios, developed preeclampsia in labor. transferred to [facility] overnight. Patient desires discharge today to go to [facility], however, given BP will continue to monitor at this time.
--- NOTE | 2021-02-08 07:33 | PCM48HPAN ---
Post Anesthesia Note - EVALUATION WITHIN 48HRS OF ANESTHETIC Vital Signs in Normal Range: Yes Patient Participated in Evaluation: Yes Respiratory Function Stable: Yes Airway Patent: Yes Cardiovascular Function Stable: Yes Hydration Status Stable: Yes Pain Control Satisfactory: Yes Nausea and Vomiting Control Satisfactory: Yes Mental Status Recovered: Yes Vital Signs: Last Vital Signs Temp 36.4 C 02/07/21 08:00 Pulse 98 02/07/21 08:00 Resp 18 02/07/21 08:00 BP 118/66 02/07/21 08:00 Pulse Ox 98 02/07/21 08:00 - COMMENTS/OBSERVATIONS Free Text/Narrative:: Ambulating without assist, full return of strength/sensation to BLE.
== END 2021-02-07 12:10 | disposition home or self-care (01) | DRG 807 ==
LOC: MW.OBCHECK 23:23 → MW.OB 23:23 → MW.OBCHECK 23:37 → MW.OB 23:37 → OBSVTOIN 02-06 21:37
PROVIDERS: ADMIT Obstetrics & Gynecology; ATTEND Obstetrics & Gynecology
PROC: 10E0XZZ Delivery of Products of Conception, External Approach (ICD-10-PCS; principal; 2021-02-06)
PROC: 0KQM0ZZ Repair Perineum Muscle, Open Approach (ICD-10-PCS; 2021-02-06)
PROC: 10907ZC Drainage of Amniotic Fluid, Therapeutic from Products of Conception, Via Natural or Artificial Opening (ICD-10-PCS; 2021-02-06)
PROC: 3E0P7VZ Introduction of Hormone into Female Reproductive, Via Natural or Artificial Opening (ICD-10-PCS; 2021-02-06)
PROC: 0UQMXZZ Repair Vulva, External Approach (ICD-10-PCS; 2021-02-06)
PROC: 3E0R3BZ Introduction of Anesthetic Agent into Spinal Canal, Percutaneous Approach (ICD-10-PCS; 2021-02-06)
PROC: 00HU33Z Insertion of Infusion Device into Spinal Canal, Percutaneous Approach (ICD-10-PCS; 2021-02-06)
DX: O40.3XX0 Polyhydramnios, third trimester, not applicable or unspecified (principal); Z37.0 Single live birth; O77.0 Labor and delivery complicated by meconium in amniotic fluid; O70.1 Second degree perineal laceration during delivery; Z3A.40 40 weeks gestation of pregnancy; O14.94 Unspecified pre-eclampsia, complicating childbirth
CPT/HCPCS: 36415; 59025; 59409; 80053; 82570; 82803; 84156; 84550; 85014; 85018; 85027; 86592; 86850; 86900; 86901; A9270-GY; J2590; J3010; J7120

== ENCOUNTER 2022-06-29 04:12 | Inpatient (IN) | payer OTHER | END 2022-06-30 13:15 | disposition home or self-care (01) | DRG 807 | LOC: MW.OBCHECK 04:12 → EDLOC 04:15 → OBSVTOIN 04:30 → MW.ZCENSUS 04:30 → MW.OBCHECK 04:30 → MW.ZCENSUS 04:31 → UNDOADMOB 04:31 | PROVIDERS: ADMIT Obstetrics & Gynecology; ATTEND Obstetrics & Gynecology | PROC: 10E0XZZ Delivery of Products of Conception, External Approach (ICD-10-PCS; principal; 2022-06-29) | PROC: 0KQM0ZZ Repair Perineum Muscle, Open Approach (ICD-10-PCS; 2022-06-29) | DX: O48.0 Post-term pregnancy (principal); Z37.0 Single live birth; Z3A.41 41 weeks gestation of pregnancy; O70.1 Second degree perineal laceration during delivery; O62.3 Precipitate labor | CPT/HCPCS: 59409 ==